=== PATIENT | male | born 1940 | race Caucasian/White ===

== ENCOUNTER 2016-09-27 09:53 | Inpatient (IN) | payer MEDICARE, MEDICAID ==
[2016-09-27] VITALS (8 sets, daily range): BP systolic 92–127; BP diastolic 32–69
[~2016-09-27] VITALS: Ht 162.6 cm; Wt 60.4 kg
[~2016-09-27 09:53] MED LIST: ATOR20TA65 PO; FINA5TAB11 PO; TAMS0.4C31 PO; TRAM50TA3 PO
[2016-09-27] MEDS ORDERED: HYDR25TA PO (10:17)
[2016-09-27] MEDS ORDERED: ASPIRIN 81MG TABLET PO STA (10:20)
[2016-09-27] MEDS ORDERED: DILTIAZEM HCL 30MG TABLET PO ONE (10:30)
[2016-09-27 10:45] LABS: BASOPHILS % 0.6 % (0.0-2.0); EOSINOPHILS % 1.2 % (0.0-5.0); HEMOGLOBIN. 13.3 g/dL (14.0-18.0); LYMPHOCYTES % 14.4 % (20.0-50.0); MEAN CORPUSCULAR HEMOGLOBIN 31.4 pg (28.0-32.0); MEAN CORPUSCULAR HGB CONC 33.2 g/dL (31.0-37.0); MEAN CORPUSCULAR VOLUME 94.6 fL (80.0-94.0); MEAN PLATELET VOLUME 9.5 fl (7.4-10.4); MONOCYTES % 10.5 % (2.0-8.0); NEUTROPHILS % 73.3 % (40.0-76.0); PLATELET 228 x1000/uL (130-400); RED BLOOD CELL COUNT 4.23 mill/uL (4.7-6.1); RED CELL DISTRIBUTION WIDTH 13.5 % (11.6-14.6); WHITE BLOOD COUNT 12.8 x1000/uL (4.5-11.0)
[2016-09-27 10:48] LABS: INR 1.1; PARTIAL THROMBOPLASTIN TIME 29.4 sec (24.0-34.0); PROTHROMBIN TIME 11.5 sec
[2016-09-27 10:49] LABS: ALBUMIN 3.4 g/dL (3.4-5.0); ANION GAP 12; CARBON DIOXIDE 26 mEq/L (21-32); CHLORIDE 109 mEq/L (98-107); INDEX HEMOLYSI 1 (1-3); INDEX ICTERIC 1 (1-4); INDEX LIPEMIC 1 (1-3); LIPASE 91 IU/L (73-393); UREA NITROGEN BLOOD 19 mg/dL (7-21)
[2016-09-27 10:55] LABS: ALANINE AMINOTRANSFERASE 17 IU/L (13-61); NT PRO B-TYPE NATRIURETIC PEP 1059 pg/mL (5-125); TROPONIN I < 0.02 ng/mL (0.00-0.04); eGFR > 60 mL/min (>60)
[2016-09-27] MEDS ORDERED: DILTIAZEM HCL 5MG/ML 5ML VIAL IV ONE (11:30)
[2016-09-27 12:14] LABS: CLARITY URINE CLEAR (CLEAR); COLOR URINE YELLOW (YELLOW); GLUCOSE URINE NEGATIVE (NEGATIVE); KETONES URINE NEGATIVE (NEGATIVE); LEUKOCYTE ESTERASE URINE NEGATIVE (NEGATIVE); NITRITE URINE NEGATIVE (NEGATIVE); OCCULT BLOOD URINE NEGATIVE (NEGATIVE); PROTEIN URINE NEGATIVE (NEGATIVE); SPECIFIC GRAVITY URINE 1.012 (1.005-1.030); UROBILINOGEN URINE 0.2 E.U./dL (0.2-1.0)
[2016-09-27] MEDS ORDERED: DOCUSATE SODIUM 100MG CAPSULE PO PRN (12:30)
[2016-09-27] MEDS ORDERED: ONDANSETRON HCL 4MG/2ML VIAL IV PRN (12:30)
[2016-09-27] MEDS ORDERED: ACETAMINOPHEN 325MG TABLET PO PRN (12:30)
[2016-09-27] MEDS ORDERED: DILTIAZEM HCL 5MG/ML 5ML VIAL IV PRN (12:45)
[2016-09-27] MEDS: OMEPRAZOLE 20MG CAPSULE EXTENDED RELEASE PO SCH (14:48)
[2016-09-27] MEDS: ENOXAPARIN 60MG/0.6ML SYR SUBCUT SCH (14:49)
[2016-09-27] MEDS: DILTIAZEM HCL 60MG TABLET PO SCH (17:51)
[2016-09-27] MEDS ORDERED: ATORVASTATIN CALCIUM 20MG TABLET PO SCH (21:00)
[2016-09-28] VITALS (8 sets, daily range): BP systolic 105–132; BP diastolic 61–77
[2016-09-28] MEDS: ENOXAPARIN 60MG/0.6ML SYR SUBCUT SCH (02:12)
[2016-09-28] MEDS: OMEPRAZOLE 20MG CAPSULE EXTENDED RELEASE PO SCH (06:08)
[2016-09-28] MEDS: DILTIAZEM HCL 60MG TABLET PO SCH ×2 (06:09)
[2016-09-28 07:08] LABS: ANION GAP 13; CALCIUM 8.2 mg/dL (8.5-10.1); CARBON DIOXIDE 24 mEq/L (21-32); CHLORIDE 108 mEq/L (98-107); HDL CHOLESTEROL 36 mg/dL (40-59); INDEX HEMOLYSI 2 (1-3); INDEX ICTERIC 1 (1-4); INDEX LIPEMIC 1 (1-3); LDL CHOLESTEROL 66 mg/dL (5-100); MAGNESIUM 1.9 mg/dL (1.8-2.4); TRIGLYCERIDE 67 mg/dL (0-150); UREA NITROGEN BLOOD 23 mg/dL (7-21); eGFR > 60 mL/min (>60)
[2016-09-28 07:53] LABS: BASOPHILS % 0.6 % (0.0-2.0); EOSINOPHILS % 2.2 % (0.0-5.0); HEMATOCRIT. 35.1 % (42.0-52.0); LYMPHOCYTES % 18.6 % (20.0-50.0); MEAN CORPUSCULAR HGB CONC 34.1 g/dL (31.0-37.0); MEAN CORPUSCULAR VOLUME 93.9 fL (80.0-94.0); MONOCYTES % 9.8 % (2.0-8.0); NEUTROPHILS % 68.8 % (40.0-76.0); PLATELET 202 x1000/uL (130-400); RED BLOOD CELL COUNT 3.74 mill/uL (4.7-6.1); RED CELL DISTRIBUTION WIDTH 13.6 % (11.6-14.6)
== END 2016-09-28 13:00 | disposition home or self-care (01) | DRG 310 ==
LOC: ER 12:01 → 3WST 12:02
PROVIDERS: ADMIT Specialist; ATTEND Specialist
DX: I48.91 Unspecified atrial fibrillation (principal); D72.829 Elevated white blood cell count, unspecified; E03.9 Hypothyroidism, unspecified; E11.9 Type 2 diabetes mellitus without complications; E78.00 Pure hypercholesterolemia, unspecified; E78.5 Hyperlipidemia, unspecified; I10 Essential (primary) hypertension; N40.0 Benign prostatic hyperplasia without lower urinary tract symptoms; Z96.651 Presence of right artificial knee joint
CPT/HCPCS: 36415; 71010; 80048; 80053; 80061; 81003; 83690; 83735; 83880; 84443; 84484; 85025; 85610; 85730; 93005; 99285; G0482; J1650; J3490